=== PATIENT | male | born 1970 | race Caucasian/White ===

== ENCOUNTER 2018-05-29 21:59 | Inpatient (IN) | payer MEDICARE, MEDICAID ==
[~2018-05-29] VITALS: Ht 180.3 cm; Wt 121.6 kg
[~2018-05-29 21:59] MED LIST: CITA-106 PO; DIVA-78 PO; QUET400T PO
[2018-05-29 23:35] LABS: BASOPHILS % (AUTO) 1.4 % (0.0-2.0); EOSINOPHILS % (AUTO) 1.4 % (1.0-6.0); HEMATOCRIT 43.6 % (41-53); HEMOGLOBIN 14.9 g/dL (13.5-17.5); LYMPHOCYTES % (AUTO) 26.6 % (22.0-44.0); MEAN CORPUSCULAR HEMOGLOBIN 29.6 pg (26.0-34.0); MEAN CORPUSCULAR HGB CONC 34.2 G/dL (31.0-37.0); MEAN CORPUSCULAR VOLUME 87 fL (80-100); MONOCYTES # (AUTO) 0.7 K/uL (0.1-1.0); MONOCYTES % (AUTO) 6.6 % (2.0-9.0); NEUTROPHILS # (AUTO) 7.3 K/uL (1.8-7.7); PLATELET COUNT (AUTO) 338 K/uL (150-450); RED BLOOD CELL COUNT(AUTO) 5.03 MIL/uL (4.50-5.90); RED CELL DISTRIBUTION WIDTH 13.9 % (11.5-14.5)
[2018-05-29 23:48] LABS: ANION GAP 10 mmol/L (8-16); CALCIUM, TOTAL 9.1 mg/dL (8.8-10.5); CARBON DIOXIDE 24 mmol/L (22-29); CHLORIDE 100 mmol/L (98-107); CREATININE 1.02 mg/dL (0.60-1.30); GLOMERULAR FILTR. RATE CALC > 60 mL/min (>60); GLUCOSE,RANDOM 145 mg/dL (70-110); SODIUM SERUM 134 mmol/L (136-145); UREA NITROGEN, BLOOD 23 mg/dL (7-18)
[2018-05-29 23:55] LABS: ALANINE AMINOTRANSFERASE 49 U/L (12-78); ALKALINE PHOSPHATASE 79 U/L (46-116); ASPARTATE AMINOTRANSFERASE 18 U/L (15-37); BILIRUBIN,TOTAL 0.3 mg/dL (0.1-1.0); TOTAL PROTEIN, SERUM 7.6 g/dL (6.4-8.2)
[2018-05-30 00:07] LABS: VALPROIC ACID < 3 mcg/mL (50-100)
[2018-05-30 05:34] LABS: AMPHET/METH SCREEN,URINE NEGATIVE (NEGATIVE); BARBITURATE SCREEN, URINE NEGATIVE (NEGATIVE); BENZODIAZEPINES SCREEN,URINE NEGATIVE (NEGATIVE); CANNABINOID SCREEN,URINE NEGATIVE (NEGATIVE); COCAINE SCREEN,URINE NEGATIVE (NEGATIVE); METHADONE SCREEN, URINE NEGATIVE (NEGATIVE); OPIATE SCREEN,URINE NEGATIVE (NEGATIVE)
[2018-05-30 05:38] LABS: PHENCYCLIDINE SCREEN,URINE NEGATIVE (NEGATIVE)
[2018-05-30 06:05] VITALS: BP 111/78
[2018-05-30] MEDS ORDERED: DOCUSATE SODIUM 100 MG CAPSULE PO PRN (06:45)
[2018-05-30] MEDS ORDERED: MAG HYDROX/AL HYDROX/SIMETH ES 30 ML SUSPENSION UDCUP PO PRN (06:45)
[2018-05-30] MEDS ORDERED: PETROLATUM,WHITE 71 GM JELLY TP PRN (06:45)
[2018-05-30] MEDS ORDERED: CloNIDine HCL 0.1 MG TABLET PO PRN (06:45)
[2018-05-30] MEDS ORDERED: ACETAMINOPHEN 325 MG TABLET PO PRN (06:45)
[2018-05-30] MEDS ORDERED: IBUPROFEN 400 MG TABLET PO PRN (06:45)
[2018-05-30] MEDS ORDERED: LOPERAMIDE HCL 2 MG CAPSULE PO PRN (06:45)
[2018-05-30] MEDS ORDERED: ONDANSETRON HCL 4 MG TABLET PO PRN (06:45)
[2018-05-30] MEDS ORDERED: NICOTINE 14 MG/24 HOUR PATCH TD PRN (06:45)
[2018-05-30] MEDS ORDERED: PNEUMOCOCCAL VACCINE POLYVALENT 0.5 ML VIAL [PPSV23] IM ONE (06:45)
[2018-05-30] MEDS ORDERED: MAGNESIUM HYDROXIDE SUSPENSION 30 ML UDCUP PO PRN (06:45)
[2018-05-30] MEDS ORDERED: ALBUTEROL SULFATE HFA 90 MCG/PUFF 8 GM INHALER IH PRN (06:45)
[2018-05-30] MEDS ORDERED: GuaiFENesin/D-METHORPHAN [SUGAR-FREE] 200-20MG/10 ML SYRUP UDCUP PO PRN (06:45)
[2018-05-30 08:59] VITALS: BP 138/63
[2018-05-30] MEDS: DIVALPROEX SODIUM 500 MG ER TABLET PO SCH (13:32)
[2018-05-30] MEDS: QUEtiapine FUMARATE 100 MG TABLET PO SCH (13:32)
[2018-05-30] MEDS: LORazepam 2 MG TABLET PO PRN (14:48)
[2018-05-30] MEDS: HALOPERIDOL 5 MG TABLET PO PRN (14:48)
[2018-05-30 16:00] VITALS: BP 136/87
[2018-05-30] MEDS: QUEtiapine FUMARATE 200 MG TABLET PO SCH (20:37)
[2018-05-31 08:29] VITALS: BP 112/73
[2018-05-31] MEDS: QUEtiapine FUMARATE 100 MG TABLET PO SCH (09:41)
[2018-05-31] MEDS: DIVALPROEX SODIUM 500 MG ER TABLET PO SCH (09:42)
[2018-05-31] MEDS: LORazepam 2 MG TABLET PO PRN ×2 (17:03→21:07)
[2018-05-31 17:49] VITALS: BP 134/92
[2018-05-31] MEDS: ZOLPIDEM TARTRATE 10 MG TABLET PO PRN (21:07)
[2018-05-31] MEDS: QUEtiapine FUMARATE 200 MG TABLET PO SCH (21:07)
[2018-06-01 08:11] VITALS: BP 134/75
[2018-06-01] MEDS: LORazepam 2 MG TABLET PO PRN ×2 (09:59→16:50)
[2018-06-01] MEDS: QUEtiapine FUMARATE 100 MG TABLET PO SCH (09:59)
[2018-06-01] MEDS: DIVALPROEX SODIUM 500 MG ER TABLET PO SCH (09:59)
[2018-06-01] MEDS: HALOPERIDOL 5 MG TABLET PO PRN ×2 (09:59→16:50)
[2018-06-01 16:00] VITALS: BP 125/86
[2018-06-01] MEDS: QUEtiapine FUMARATE 200 MG TABLET PO SCH (20:37)
[2018-06-02 06:15] VITALS: BP 130/74
[2018-06-02 08:08] LABS: BASOPHILS % (AUTO) 0.8 % (0.0-2.0); EOSINOPHILS % (AUTO) 1.7 % (1.0-6.0); HEMATOCRIT 44.4 % (41-53); LYMPHOCYTES # (AUTO) 2.4 K/uL (1.0-4.8); LYMPHOCYTES % (AUTO) 31.9 % (22.0-44.0); MEAN CORPUSCULAR HEMOGLOBIN 29.6 pg (26.0-34.0); MEAN CORPUSCULAR HGB CONC 33.8 G/dL (31.0-37.0); MEAN CORPUSCULAR VOLUME 88 fL (80-100); MONOCYTES # (AUTO) 0.4 K/uL (0.1-1.0); MONOCYTES % (AUTO) 5.6 % (2.0-9.0); NEUTROPHILS # (AUTO) 4.5 K/uL (1.8-7.7); PLATELET COUNT (AUTO) 330 K/uL (150-450); RED BLOOD CELL COUNT(AUTO) 5.07 MIL/uL (4.50-5.90); RED CELL DISTRIBUTION WIDTH 13.3 % (11.5-14.5)
[2018-06-02 08:13] VITALS: BP 134/64
[2018-06-02 08:38] LABS: ANION GAP 7 mmol/L (8-16); CALCIUM, TOTAL 9.2 mg/dL (8.8-10.5); CARBON DIOXIDE 29 mmol/L (22-29); CHLORIDE 102 mmol/L (98-107); CREATININE 0.84 mg/dL (0.60-1.30); GLOMERULAR FILTR. RATE CALC > 60 mL/min (>60); GLUCOSE,RANDOM 175 mg/dL (70-110); POTASSIUM 4.2 mmol/L (3.5-5.1); SODIUM SERUM 138 mmol/L (136-145); UREA NITROGEN, BLOOD 12 mg/dL (7-18)
[2018-06-02] MEDS: HALOPERIDOL 5 MG TABLET PO PRN ×2 (08:46→16:35)
[2018-06-02] MEDS: QUEtiapine FUMARATE 100 MG TABLET PO SCH (08:46)
[2018-06-02] MEDS: LORazepam 2 MG TABLET PO PRN ×2 (08:46→16:35)
[2018-06-02] MEDS: DIVALPROEX SODIUM 500 MG ER TABLET PO SCH (08:46)
[2018-06-02 16:11] VITALS: BP 128/86
[2018-06-02] MEDS ORDERED: TUBERCULIN, PURIFIED PROTEIN DERIVATIVE 5 TU/0.1 ML SYG ID ONE (16:15)
[2018-06-02] MEDS: QUEtiapine FUMARATE 200 MG TABLET PO SCH (20:53)
[2018-06-02] MEDS: ZOLPIDEM TARTRATE 10 MG TABLET PO PRN (20:53)
[2018-06-03 05:40] VITALS: BP 121/87
[2018-06-03 08:34] VITALS: BP 111/81
[2018-06-03] MEDS: LORazepam 2 MG TABLET PO PRN (09:07)
[2018-06-03] MEDS: QUEtiapine FUMARATE 100 MG TABLET PO SCH (09:08)
[2018-06-03] MEDS: DIVALPROEX SODIUM 500 MG ER TABLET PO SCH (09:08)
[2018-06-03] MEDS: HALOPERIDOL 5 MG TABLET PO PRN (09:08)
[2018-06-03 16:16] VITALS: BP 126/80
[2018-06-03] MEDS: QUEtiapine FUMARATE 200 MG TABLET PO SCH (20:09)
[2018-06-03] MEDS: ZOLPIDEM TARTRATE 10 MG TABLET PO PRN (20:09)
[2018-06-04 05:55] VITALS: BP 118/79
[2018-06-04 08:23] VITALS: BP 125/81
[2018-06-04] MEDS: DIVALPROEX SODIUM 500 MG ER TABLET PO SCH (08:24)
[2018-06-04] MEDS: LORazepam 2 MG TABLET PO PRN ×2 (08:25→17:03)
[2018-06-04] MEDS: HALOPERIDOL 5 MG TABLET PO PRN ×2 (08:25→17:03)
[2018-06-04] MEDS: QUEtiapine FUMARATE 100 MG TABLET PO SCH ×2 (08:25→17:03)
[2018-06-04 16:22] VITALS: BP 136/84
[2018-06-04] MEDS: QUEtiapine FUMARATE 300 MG TABLET PO SCH (20:38)
[2018-06-04] MEDS: ZOLPIDEM TARTRATE 10 MG TABLET PO PRN (20:39)
[2018-06-05 06:18] VITALS: BP 118/78
[2018-06-05 08:10] VITALS: BP 138/78
[2018-06-05] MEDS: DIVALPROEX SODIUM 500 MG ER TABLET PO SCH (08:55)
[2018-06-05] MEDS: QUEtiapine FUMARATE 100 MG TABLET PO SCH ×2 (08:55→17:12)
[2018-06-05 16:10] VITALS: BP 127/75
[2018-06-05] MEDS: LORazepam 2 MG TABLET PO PRN (17:11)
[2018-06-05] MEDS: ZOLPIDEM TARTRATE 10 MG TABLET PO PRN (20:32)
[2018-06-05] MEDS: QUEtiapine FUMARATE 300 MG TABLET PO SCH (20:32)
[2018-06-06 01:35] VITALS: BP 129/80
[2018-06-06 08:21] VITALS: BP 139/84
[2018-06-06] MEDS: DIVALPROEX SODIUM 500 MG ER TABLET PO SCH (09:27)
[2018-06-06] MEDS: HALOPERIDOL 5 MG TABLET PO PRN ×2 (09:28→16:47)
[2018-06-06] MEDS: LORazepam 2 MG TABLET PO PRN ×2 (09:28→16:47)
[2018-06-06] MEDS: QUEtiapine FUMARATE 100 MG TABLET PO SCH ×2 (09:28→16:47)
[2018-06-06 16:30] VITALS: BP 135/60
[2018-06-06] MEDS: ZOLPIDEM TARTRATE 10 MG TABLET PO PRN (20:28)
[2018-06-06] MEDS: QUEtiapine FUMARATE 300 MG TABLET PO SCH (20:28)
[2018-06-07 04:51] VITALS: BP 128/64
[2018-06-07 08:13] VITALS: BP 126/67
[2018-06-07] MEDS: DIVALPROEX SODIUM 500 MG ER TABLET PO SCH (09:27)
[2018-06-07] MEDS: QUEtiapine FUMARATE 100 MG TABLET PO SCH ×2 (09:27→17:33)
[2018-06-07] MEDS: HALOPERIDOL 5 MG TABLET PO PRN ×2 (09:27→17:33)
[2018-06-07] MEDS: LORazepam 2 MG TABLET PO PRN ×2 (09:27→17:33)
[2018-06-07 16:13] VITALS: BP 139/95
[2018-06-07] MEDS: QUEtiapine FUMARATE 300 MG TABLET PO SCH (20:57)
[2018-06-07] MEDS: ZOLPIDEM TARTRATE 10 MG TABLET PO PRN (20:57)
[2018-06-08 06:31] VITALS: BP 132/83
[2018-06-08 08:18] VITALS: BP 130/80
[2018-06-08] MEDS: LORazepam 2 MG TABLET PO PRN ×2 (09:15→16:18)
[2018-06-08] MEDS: HALOPERIDOL 5 MG TABLET PO PRN ×2 (09:15→16:18)
[2018-06-08] MEDS: DIVALPROEX SODIUM 500 MG ER TABLET PO SCH (09:15)
[2018-06-08] MEDS: QUEtiapine FUMARATE 100 MG TABLET PO SCH ×2 (09:15→16:18)
[2018-06-08] MEDS ORDERED: PALIPERIDONE PALMITATE 234 MG/1.5 ML SYRINGE IM ONE (15:45)
[2018-06-08 16:32] VITALS: BP 134/83
[2018-06-08] MEDS: QUEtiapine FUMARATE 300 MG TABLET PO SCH (20:41)
[2018-06-08] MEDS: ZOLPIDEM TARTRATE 10 MG TABLET PO PRN (20:41)
[2018-06-09 04:57] VITALS: BP 113/77
[2018-06-09 08:12] VITALS: BP 118/70
[2018-06-09] MEDS: LORazepam 2 MG TABLET PO PRN ×2 (08:33→16:33)
[2018-06-09] MEDS: QUEtiapine FUMARATE 100 MG TABLET PO SCH ×2 (08:33→16:33)
[2018-06-09] MEDS: HALOPERIDOL 5 MG TABLET PO PRN ×2 (08:33→16:33)
[2018-06-09] MEDS: DIVALPROEX SODIUM 500 MG ER TABLET PO SCH (08:33)
[2018-06-09 16:07] VITALS: BP 139/72
[2018-06-09] MEDS: ZOLPIDEM TARTRATE 10 MG TABLET PO PRN (20:11)
[2018-06-09] MEDS: QUEtiapine FUMARATE 300 MG TABLET PO SCH (20:11)
[2018-06-10 06:46] VITALS: BP 130/67
[2018-06-10] MEDS: DIVALPROEX SODIUM 500 MG ER TABLET PO SCH (08:31)
[2018-06-10] MEDS: QUEtiapine FUMARATE 100 MG TABLET PO SCH ×2 (08:31→16:21)
[2018-06-10 12:49] VITALS: BP 132/74
[2018-06-10 16:00] VITALS: BP 121/71
[2018-06-10] MEDS: HALOPERIDOL 5 MG TABLET PO PRN (16:20)
[2018-06-10] MEDS: LORazepam 2 MG TABLET PO PRN (16:21)
[2018-06-10] MEDS: QUEtiapine FUMARATE 300 MG TABLET PO SCH (20:10)
[2018-06-10] MEDS: ZOLPIDEM TARTRATE 10 MG TABLET PO PRN (20:10)
[2018-06-11 06:41] VITALS: BP 128/68
[2018-06-11 08:16] VITALS: BP 112/62
[2018-06-11] MEDS: DIVALPROEX SODIUM 500 MG ER TABLET PO SCH (08:57)
[2018-06-11] MEDS: QUEtiapine FUMARATE 100 MG TABLET PO SCH ×2 (08:57→16:46)
[2018-06-11] MEDS: LORazepam 2 MG TABLET PO PRN ×2 (09:55→16:47)
[2018-06-11] MEDS ORDERED: PALIPERIDONE PALMITATE 156 MG/ML SYRINGE IM ONE (15:45)
[2018-06-11 16:00] VITALS: BP 133/82
[2018-06-11] MEDS: HALOPERIDOL 5 MG TABLET PO PRN (16:47)
[2018-06-11] MEDS: ZOLPIDEM TARTRATE 10 MG TABLET PO PRN (20:10)
[2018-06-11] MEDS: QUEtiapine FUMARATE 300 MG TABLET PO SCH (20:10)
[2018-06-12 06:35] VITALS: BP 132/78
[2018-06-12 08:11] VITALS: BP 136/87
[2018-06-12] MEDS: DIVALPROEX SODIUM 500 MG ER TABLET PO SCH (08:45)
[2018-06-12] MEDS: QUEtiapine FUMARATE 100 MG TABLET PO SCH ×2 (08:45→16:51)
[2018-06-12 16:00] VITALS: BP 130/82
[2018-06-12] MEDS: HALOPERIDOL 5 MG TABLET PO PRN (16:51)
[2018-06-12] MEDS: LORazepam 2 MG TABLET PO PRN (16:51)
[2018-06-12] MEDS: QUEtiapine FUMARATE 300 MG TABLET PO SCH (20:53)
[2018-06-12] MEDS: ZOLPIDEM TARTRATE 10 MG TABLET PO PRN (20:53)
[2018-06-13 04:03] VITALS: BP 112/72
[2018-06-13 08:09] VITALS: BP 127/79
[2018-06-13] MEDS: QUEtiapine FUMARATE 100 MG TABLET PO SCH ×2 (08:43→16:16)
[2018-06-13] MEDS: DIVALPROEX SODIUM 500 MG ER TABLET PO SCH (08:43)
[2018-06-13] MEDS: HALOPERIDOL 5 MG TABLET PO PRN (10:11)
[2018-06-13 16:00] VITALS: BP 134/86
[2018-06-13] MEDS: LORazepam 2 MG TABLET PO PRN (16:16)
[2018-06-13] MEDS: QUEtiapine FUMARATE 300 MG TABLET PO SCH (20:28)
[2018-06-14 06:41] VITALS: BP 111/72
[2018-06-14 08:11] VITALS: BP 128/76
[2018-06-14] MEDS: DIVALPROEX SODIUM 500 MG ER TABLET PO SCH (08:58)
[2018-06-14] MEDS: QUEtiapine FUMARATE 100 MG TABLET PO SCH ×2 (08:59→17:11)
[2018-06-14] MEDS: HALOPERIDOL 5 MG TABLET PO PRN (17:11)
[2018-06-14] MEDS: LORazepam 2 MG TABLET PO PRN (17:11)
[2018-06-14] MEDS: QUEtiapine FUMARATE 300 MG TABLET PO SCH (21:01)
[2018-06-14] MEDS: ZOLPIDEM TARTRATE 10 MG TABLET PO PRN (21:01)
[2018-06-15 05:45] VITALS: BP 123/81
[2018-06-15 08:08] VITALS: BP 114/68
[2018-06-15] MEDS: DIVALPROEX SODIUM 500 MG ER TABLET PO SCH (08:37)
[2018-06-15] MEDS: QUEtiapine FUMARATE 100 MG TABLET PO SCH ×2 (08:37→17:30)
[2018-06-15 16:00] VITALS: BP 134/80
[2018-06-15] MEDS: QUEtiapine FUMARATE 300 MG TABLET PO SCH (20:38)
[2018-06-16 05:10] VITALS: BP 111/79
[2018-06-16 08:12] VITALS: BP 118/72
[2018-06-16] MEDS: QUEtiapine FUMARATE 100 MG TABLET PO SCH ×2 (08:56→16:44)
[2018-06-16] MEDS: DIVALPROEX SODIUM 500 MG ER TABLET PO SCH (08:56)
[2018-06-16 16:00] VITALS: BP 127/78
[2018-06-16] MEDS: LORazepam 2 MG TABLET PO PRN (16:44)
[2018-06-16] MEDS: HALOPERIDOL 5 MG TABLET PO PRN (16:44)
[2018-06-16] MEDS: QUEtiapine FUMARATE 300 MG TABLET PO SCH (21:00)
[2018-06-16] MEDS: ZOLPIDEM TARTRATE 10 MG TABLET PO PRN (21:00)
[2018-06-17 07:08] VITALS: BP 127/82
[2018-06-17 08:09] VITALS: BP 129/78
[2018-06-17] MEDS: QUEtiapine FUMARATE 100 MG TABLET PO SCH ×2 (09:00→17:28)
[2018-06-17] MEDS: DIVALPROEX SODIUM 500 MG ER TABLET PO SCH (09:00)
[2018-06-17 09:27] LABS: ALANINE AMINOTRANSFERASE 69 U/L (12-78); ALBUMIN 3.7 g/dL (3.4-5.0); ALKALINE PHOSPHATASE 74 U/L (46-116); ANION GAP 10 mmol/L (8-16); ASPARTATE AMINOTRANSFERASE 24 U/L (15-37); BILIRUBIN,TOTAL 0.4 mg/dL (0.1-1.0); CALCIUM, TOTAL 9.2 mg/dL (8.8-10.5); CARBON DIOXIDE 28 mmol/L (22-29); CHLORIDE 102 mmol/L (98-107); CREATININE 0.91 mg/dL (0.60-1.30); GLOMERULAR FILTR. RATE CALC > 60 mL/min (>60); GLUCOSE,RANDOM 206 mg/dL (70-110); POTASSIUM 4.6 mmol/L (3.5-5.1); SODIUM SERUM 140 mmol/L (136-145); UREA NITROGEN, BLOOD 16 mg/dL (7-18)
[2018-06-17 16:00] VITALS: BP 133/71
[2018-06-17] MEDS: LORazepam 2 MG TABLET PO PRN (17:28)
[2018-06-17] MEDS: QUEtiapine FUMARATE 300 MG TABLET PO SCH (21:21)
[2018-06-17] MEDS: ZOLPIDEM TARTRATE 10 MG TABLET PO PRN (21:21)
[2018-06-18] MEDS: MetFORMIN HCL 500 MG TABLET PO SCH (07:08)
[2018-06-18 08:12] VITALS: BP 128/74
[2018-06-18] MEDS: DIVALPROEX SODIUM 500 MG ER TABLET PO SCH (08:34)
[2018-06-18] MEDS: QUEtiapine FUMARATE 100 MG TABLET PO SCH ×2 (08:34→17:05)
[2018-06-18] MEDS: LORazepam 2 MG TABLET PO PRN ×3 (09:02→21:50)
[2018-06-18 16:37] VITALS: BP 116/67
[2018-06-18] MEDS: QUEtiapine FUMARATE 300 MG TABLET PO SCH (20:38)
[2018-06-18] MEDS: ZOLPIDEM TARTRATE 10 MG TABLET PO PRN (20:38)
[2018-06-18 21:45] VITALS: BP 131/89
[2018-06-18] MEDS: HALOPERIDOL 5 MG TABLET PO PRN (21:50)
[2018-06-19 06:32] VITALS: BP 128/79
[2018-06-19] MEDS: MetFORMIN HCL 500 MG TABLET PO SCH (06:47)
[2018-06-19 08:02] LABS: ANION GAP 2 mmol/L (8-16); CARBON DIOXIDE 34 mmol/L (22-29); CHLORIDE 104 mmol/L (98-107); CREATININE 0.83 mg/dL (0.60-1.30); GLOMERULAR FILTR. RATE CALC > 60 mL/min (>60); GLUCOSE,RANDOM 117 mg/dL (70-110); POTASSIUM 4.5 mmol/L (3.5-5.1); SODIUM SERUM 140 mmol/L (136-145); UREA NITROGEN, BLOOD 14 mg/dL (7-18)
[2018-06-19] MEDS: QUEtiapine FUMARATE 100 MG TABLET PO SCH ×2 (08:07→16:37)
[2018-06-19] MEDS: DIVALPROEX SODIUM 500 MG ER TABLET PO SCH (08:07)
[2018-06-19] MEDS: HALOPERIDOL 5 MG TABLET PO PRN ×2 (08:07→12:10)
[2018-06-19] MEDS: LORazepam 2 MG TABLET PO PRN ×3 (08:07→16:37)
[2018-06-19 08:58] VITALS: BP 140/89
[2018-06-19 16:36] VITALS: BP 126/87
[2018-06-19] MEDS: ZOLPIDEM TARTRATE 10 MG TABLET PO PRN (20:35)
[2018-06-19] MEDS: QUEtiapine FUMARATE 300 MG TABLET PO SCH (20:35)
[2018-06-20] MEDS: HALOPERIDOL 5 MG TABLET PO PRN ×2 (00:43→16:23)
[2018-06-20] MEDS: LORazepam 2 MG TABLET PO PRN ×3 (00:43→16:23)
[2018-06-20 00:45] VITALS: BP 135/88
[2018-06-20] MEDS: MetFORMIN HCL 500 MG TABLET PO SCH (06:17)
[2018-06-20] MEDS: DIVALPROEX SODIUM 500 MG ER TABLET PO SCH (08:30)
[2018-06-20] MEDS: QUEtiapine FUMARATE 100 MG TABLET PO SCH ×2 (08:30→16:23)
[2018-06-20 09:40] VITALS: BP 100/68
[2018-06-20 16:12] VITALS: BP 124/82
[2018-06-20] MEDS: ZOLPIDEM TARTRATE 10 MG TABLET PO PRN (20:51)
[2018-06-20] MEDS: QUEtiapine FUMARATE 300 MG TABLET PO SCH (20:51)
[2018-06-21] MEDS: MetFORMIN HCL 500 MG TABLET PO SCH (06:17)
[2018-06-21 06:39] VITALS: BP 130/79
[2018-06-21 08:09] VITALS: BP 132/78
[2018-06-21] MEDS: DIVALPROEX SODIUM 500 MG ER TABLET PO SCH (08:42)
[2018-06-21] MEDS: QUEtiapine FUMARATE 100 MG TABLET PO SCH ×2 (08:42→16:37)
[2018-06-21 16:12] VITALS: BP 130/72
[2018-06-21] MEDS: LORazepam 2 MG TABLET PO PRN (16:37)
[2018-06-21] MEDS: ZOLPIDEM TARTRATE 10 MG TABLET PO PRN (21:00)
[2018-06-21] MEDS: QUEtiapine FUMARATE 300 MG TABLET PO SCH (21:00)
[2018-06-22 03:15] VITALS: BP 149/89
[2018-06-22] MEDS: MetFORMIN HCL 500 MG TABLET PO SCH (06:34)
[2018-06-22] MEDS: DIVALPROEX SODIUM 500 MG ER TABLET PO SCH (09:02)
[2018-06-22] MEDS: QUEtiapine FUMARATE 100 MG TABLET PO SCH ×2 (09:02→17:14)
[2018-06-22 09:31] VITALS: BP 110/69
[2018-06-22 16:00] VITALS: BP 118/76
[2018-06-22] MEDS: LORazepam 2 MG TABLET PO PRN (17:14)
[2018-06-22] MEDS: QUEtiapine FUMARATE 300 MG TABLET PO SCH (20:53)
[2018-06-22] MEDS: ZOLPIDEM TARTRATE 10 MG TABLET PO PRN (20:54)
[2018-06-23] MEDS: MetFORMIN HCL 500 MG TABLET PO SCH (06:10)
[2018-06-23 06:40] VITALS: BP 100/66
[2018-06-23 08:13] VITALS: BP 116/65
[2018-06-23] MEDS: HALOPERIDOL 5 MG TABLET PO PRN (08:43)
[2018-06-23] MEDS: DIVALPROEX SODIUM 500 MG ER TABLET PO SCH (08:43)
[2018-06-23] MEDS: QUEtiapine FUMARATE 100 MG TABLET PO SCH ×2 (08:43→17:11)
[2018-06-23] MEDS: LORazepam 2 MG TABLET PO PRN (08:43)
[2018-06-23 16:00] VITALS: BP 134/84
[2018-06-23] MEDS: QUEtiapine FUMARATE 300 MG TABLET PO SCH (21:19)
[2018-06-24] MEDS: MetFORMIN HCL 500 MG TABLET PO SCH (06:46)
[2018-06-24 07:03] VITALS: BP 124/78
[2018-06-24 08:13] VITALS: BP 126/72
[2018-06-24] MEDS: QUEtiapine FUMARATE 100 MG TABLET PO SCH ×2 (09:49→16:30)
[2018-06-24] MEDS: DIVALPROEX SODIUM 500 MG ER TABLET PO SCH (09:49)
[2018-06-24] MEDS: HALOPERIDOL 5 MG TABLET PO PRN (09:49)
[2018-06-24 17:07] VITALS: BP 129/75
[2018-06-24] MEDS: QUEtiapine FUMARATE 300 MG TABLET PO SCH (20:49)
[2018-06-25] MEDS: MetFORMIN HCL 500 MG TABLET PO SCH (06:50)
[2018-06-25 07:31] VITALS: BP 128/83
[2018-06-25 08:23] VITALS: BP 114/72
[2018-06-25] MEDS: DIVALPROEX SODIUM 500 MG ER TABLET PO SCH (08:53)
[2018-06-25] MEDS: QUEtiapine FUMARATE 100 MG TABLET PO SCH ×2 (08:53→17:02)
[2018-06-25] MEDS: HALOPERIDOL 5 MG TABLET PO PRN ×2 (08:54→17:02)
[2018-06-25 16:09] VITALS: BP 119/71
[2018-06-25] MEDS: LORazepam 2 MG TABLET PO PRN (18:01)
[2018-06-25] MEDS: QUEtiapine FUMARATE 300 MG TABLET PO SCH (21:13)
[2018-06-25] MEDS: ZOLPIDEM TARTRATE 10 MG TABLET PO PRN (21:14)
[2018-06-26] MEDS: MetFORMIN HCL 500 MG TABLET PO SCH (06:36)
[2018-06-26 08:00] VITALS: BP 118/71
[2018-06-26] MEDS: QUEtiapine FUMARATE 100 MG TABLET PO SCH ×2 (08:32→17:10)
[2018-06-26] MEDS: DIVALPROEX SODIUM 500 MG ER TABLET PO SCH (08:32)
[2018-06-26] MEDS: HALOPERIDOL 5 MG TABLET PO PRN ×2 (08:33→19:07)
[2018-06-26] MEDS: LORazepam 2 MG TABLET PO PRN ×2 (08:33→17:10)
[2018-06-26 16:21] VITALS: BP 122/89
[2018-06-26] MEDS: QUEtiapine FUMARATE 300 MG TABLET PO SCH (21:04)
[2018-06-27 06:17] VITALS: BP 139/75
[2018-06-27] MEDS: MetFORMIN HCL 500 MG TABLET PO SCH (06:21)
[2018-06-27 08:35] VITALS: BP 134/87
[2018-06-27] MEDS: DIVALPROEX SODIUM 500 MG ER TABLET PO SCH (09:00)
[2018-06-27] MEDS: QUEtiapine FUMARATE 100 MG TABLET PO SCH ×2 (09:00→16:02)
[2018-06-27] MEDS: LORazepam 2 MG TABLET PO PRN (16:02)
[2018-06-27 16:39] VITALS: BP 137/85
[2018-06-27] MEDS: ZOLPIDEM TARTRATE 10 MG TABLET PO PRN (20:55)
[2018-06-27] MEDS: QUEtiapine FUMARATE 300 MG TABLET PO SCH (20:55)
[2018-06-28] MEDS: MetFORMIN HCL 500 MG TABLET PO SCH (06:08)
[2018-06-28 08:00] VITALS: BP 118/69
[2018-06-28] MEDS: QUEtiapine FUMARATE 100 MG TABLET PO SCH ×2 (09:08→16:08)
[2018-06-28] MEDS: LORazepam 2 MG TABLET PO PRN (09:08)
[2018-06-28] MEDS: DIVALPROEX SODIUM 500 MG ER TABLET PO SCH (09:08)
[2018-06-28 16:30] VITALS: BP 115/79
[2018-06-28] MEDS: QUEtiapine FUMARATE 300 MG TABLET PO SCH (21:13)
[2018-06-28] MEDS: ZOLPIDEM TARTRATE 10 MG TABLET PO PRN (21:13)
[2018-06-29 00:13] VITALS: BP 142/93
[2018-06-29] MEDS: MetFORMIN HCL 500 MG TABLET PO SCH (06:35)
[2018-06-29 08:33] VITALS: BP 135/82
[2018-06-29] MEDS: QUEtiapine FUMARATE 100 MG TABLET PO SCH ×2 (08:52→17:19)
[2018-06-29] MEDS: DIVALPROEX SODIUM 500 MG ER TABLET PO SCH (08:52)
[2018-06-29 16:00] VITALS: BP 122/83
[2018-06-29] MEDS: LORazepam 2 MG TABLET PO PRN (17:19)
[2018-06-29] MEDS: HALOPERIDOL 5 MG TABLET PO PRN (17:19)
[2018-06-29] MEDS: QUEtiapine FUMARATE 300 MG TABLET PO SCH (21:10)
[2018-06-29] MEDS: ZOLPIDEM TARTRATE 10 MG TABLET PO PRN (21:10)
[2018-06-30 00:09] VITALS: BP 125/80
[2018-06-30] MEDS: MetFORMIN HCL 500 MG TABLET PO SCH (06:36)
[2018-06-30 08:12] VITALS: BP 122/58
[2018-06-30] MEDS: DIVALPROEX SODIUM 500 MG ER TABLET PO SCH (10:07)
[2018-06-30] MEDS: QUEtiapine FUMARATE 100 MG TABLET PO SCH ×2 (10:07→16:49)
[2018-06-30 16:00] VITALS: BP 118/87
[2018-06-30] MEDS: HALOPERIDOL 5 MG TABLET PO PRN (16:49)
[2018-06-30] MEDS: LORazepam 2 MG TABLET PO PRN (16:49)
[2018-06-30] MEDS: QUEtiapine FUMARATE 300 MG TABLET PO SCH (20:24)
[2018-06-30] MEDS: ZOLPIDEM TARTRATE 10 MG TABLET PO PRN (20:24)
[2018-07-01 03:49] VITALS: BP 124/85
[2018-07-01] MEDS: MetFORMIN HCL 500 MG TABLET PO SCH (06:47)
[2018-07-01 08:21] VITALS: BP 118/72
[2018-07-01] MEDS: DIVALPROEX SODIUM 500 MG ER TABLET PO SCH (08:58)
[2018-07-01] MEDS: QUEtiapine FUMARATE 100 MG TABLET PO SCH ×2 (08:58→17:15)
[2018-07-01 11:02] VITALS: BP 121/68
[2018-07-01 16:00] VITALS: BP 112/73
[2018-07-01] MEDS: QUEtiapine FUMARATE 300 MG TABLET PO SCH (20:53)
[2018-07-02] MEDS: MetFORMIN HCL 500 MG TABLET PO SCH (06:57)
[2018-07-02 08:00] VITALS: BP 103/79
[2018-07-02] MEDS: DIVALPROEX SODIUM 500 MG ER TABLET PO SCH (08:43)
[2018-07-02] MEDS: QUEtiapine FUMARATE 100 MG TABLET PO SCH ×2 (08:44→16:52)
[2018-07-02 16:00] VITALS: BP 116/61
[2018-07-02] MEDS: QUEtiapine FUMARATE 300 MG TABLET PO SCH (21:13)
[2018-07-03] MEDS: MetFORMIN HCL 500 MG TABLET PO SCH (07:04)
[2018-07-03 08:50] VITALS: BP 116/80
[2018-07-03] MEDS: DIVALPROEX SODIUM 500 MG ER TABLET PO SCH (08:59)
[2018-07-03] MEDS: QUEtiapine FUMARATE 100 MG TABLET PO SCH ×2 (08:59→17:40)
[2018-07-03] MEDS: LORazepam 2 MG TABLET PO PRN (11:26)
[2018-07-03] MEDS: HALOPERIDOL 5 MG TABLET PO PRN (11:27)
[2018-07-03 17:45] VITALS: BP 137/64
[2018-07-03] MEDS: QUEtiapine FUMARATE 300 MG TABLET PO SCH (20:30)
[2018-07-04] MEDS: MetFORMIN HCL 500 MG TABLET PO SCH (07:34)
[2018-07-04 08:51] VITALS: BP 107/65
[2018-07-04] MEDS: DIVALPROEX SODIUM 500 MG ER TABLET PO SCH (08:52)
[2018-07-04] MEDS: QUEtiapine FUMARATE 100 MG TABLET PO SCH ×2 (08:52→16:42)
[2018-07-04 17:19] VITALS: BP 122/84
[2018-07-04] MEDS: QUEtiapine FUMARATE 300 MG TABLET PO SCH (20:48)
[2018-07-05] MEDS: MetFORMIN HCL 500 MG TABLET PO SCH (07:05)
[2018-07-05] MEDS: QUEtiapine FUMARATE 100 MG TABLET PO SCH ×2 (08:54→16:14)
[2018-07-05] MEDS: DIVALPROEX SODIUM 500 MG ER TABLET PO SCH (08:54)
[2018-07-05 09:34] VITALS: BP 135/93
[2018-07-05] MEDS: LORazepam 2 MG TABLET PO PRN (16:14)
[2018-07-05 16:25] VITALS: BP 129/85
[2018-07-05] MEDS: HALOPERIDOL 5 MG TABLET PO PRN (17:55)
[2018-07-05] MEDS: ZOLPIDEM TARTRATE 10 MG TABLET PO PRN (21:03)
[2018-07-05] MEDS: QUEtiapine FUMARATE 300 MG TABLET PO SCH (21:03)
[2018-07-06] MEDS: MetFORMIN HCL 500 MG TABLET PO SCH (07:05)
[2018-07-06 08:00] VITALS: BP 111/80
[2018-07-06] MEDS: PALIPERIDONE PALMITATE 234 MG/1.5 ML SYRINGE IM SCH (10:22)
[2018-07-06] MEDS: QUEtiapine FUMARATE 100 MG TABLET PO SCH ×2 (10:24→16:00)
[2018-07-06] MEDS: DIVALPROEX SODIUM 500 MG ER TABLET PO SCH (10:24)
[2018-07-06 17:07] VITALS: BP 122/86
[2018-07-06] MEDS: QUEtiapine FUMARATE 300 MG TABLET PO SCH (20:44)
[2018-07-07] MEDS: MetFORMIN HCL 500 MG TABLET PO SCH (06:49)
[2018-07-07] MEDS: DIVALPROEX SODIUM 500 MG ER TABLET PO SCH (09:06)
[2018-07-07] MEDS: QUEtiapine FUMARATE 100 MG TABLET PO SCH ×2 (09:06→17:12)
[2018-07-07] MEDS: HALOPERIDOL 5 MG TABLET PO PRN (15:19)
[2018-07-07] MEDS: LORazepam 2 MG TABLET PO PRN (15:19)
[2018-07-07 16:52] VITALS: BP 116/84
[2018-07-07] MEDS: QUEtiapine FUMARATE 300 MG TABLET PO SCH (21:38)
[2018-07-08] MEDS: MetFORMIN HCL 500 MG TABLET PO SCH (07:09)
[2018-07-08 07:25] LABS: ANION GAP 6 mmol/L (8-16); CALCIUM, TOTAL 9.1 mg/dL (8.8-10.5); CARBON DIOXIDE 31 mmol/L (22-29); CHLORIDE 99 mmol/L (98-107); CREATININE 0.83 mg/dL (0.60-1.30); GLOMERULAR FILTR. RATE CALC > 60 mL/min (>60); GLUCOSE,RANDOM 140 mg/dL (70-110); POTASSIUM 4.1 mmol/L (3.5-5.1); SODIUM SERUM 136 mmol/L (136-145); UREA NITROGEN, BLOOD 13 mg/dL (7-18)
[2018-07-08 08:00] VITALS: BP 117/73
[2018-07-08] MEDS: QUEtiapine FUMARATE 100 MG TABLET PO SCH ×2 (09:29→17:18)
[2018-07-08] MEDS: DIVALPROEX SODIUM 500 MG ER TABLET PO SCH (09:29)
[2018-07-08] MEDS: HALOPERIDOL 5 MG TABLET PO PRN (09:29)
[2018-07-08] MEDS: LORazepam 2 MG TABLET PO PRN (09:29)
[2018-07-08 16:00] VITALS: BP 114/70
[2018-07-08] MEDS: QUEtiapine FUMARATE 300 MG TABLET PO SCH (20:15)
[2018-07-09] MEDS: MetFORMIN HCL 500 MG TABLET PO SCH (06:45)
[2018-07-09 08:00] VITALS: BP 104/85
[2018-07-09] MEDS: QUEtiapine FUMARATE 100 MG TABLET PO SCH ×2 (09:58→16:22)
[2018-07-09] MEDS: DIVALPROEX SODIUM 500 MG ER TABLET PO SCH (09:58)
[2018-07-09 17:14] VITALS: BP 117/68
[2018-07-09] MEDS: QUEtiapine FUMARATE 300 MG TABLET PO SCH (20:33)
[2018-07-10] MEDS: MetFORMIN HCL 500 MG TABLET PO SCH (06:43)
[2018-07-10 08:20] VITALS: BP 117/86
[2018-07-10] MEDS: QUEtiapine FUMARATE 100 MG TABLET PO SCH ×2 (08:36→17:24)
[2018-07-10] MEDS: LORazepam 2 MG TABLET PO PRN (08:36)
[2018-07-10] MEDS: DIVALPROEX SODIUM 500 MG ER TABLET PO SCH (08:36)
[2018-07-10] MEDS: HALOPERIDOL 5 MG TABLET PO PRN (08:36)
[2018-07-10 19:47] VITALS: BP 115/72
[2018-07-10] MEDS: QUEtiapine FUMARATE 300 MG TABLET PO SCH (20:19)
[2018-07-11] MEDS: MetFORMIN HCL 500 MG TABLET PO SCH (06:48)
[2018-07-11 08:36] VITALS: BP 120/84
[2018-07-11] MEDS: QUEtiapine FUMARATE 100 MG TABLET PO SCH ×2 (10:15→16:09)
[2018-07-11] MEDS: DIVALPROEX SODIUM 500 MG ER TABLET PO SCH (10:15)
[2018-07-11 16:00] VITALS: BP 114/70
[2018-07-11] MEDS: LORazepam 2 MG TABLET PO PRN (16:50)
[2018-07-11] MEDS: HALOPERIDOL 5 MG TABLET PO PRN (16:51)
[2018-07-11] MEDS: QUEtiapine FUMARATE 300 MG TABLET PO SCH (20:58)
[2018-07-12] MEDS: MetFORMIN HCL 500 MG TABLET PO SCH (06:36)
[2018-07-12] MEDS: DIVALPROEX SODIUM 500 MG ER TABLET PO SCH (09:16)
[2018-07-12] MEDS: QUEtiapine FUMARATE 100 MG TABLET PO SCH ×2 (09:16→16:02)
[2018-07-12 16:00] VITALS: BP 121/81
[2018-07-12] MEDS: LORazepam 2 MG TABLET PO PRN (16:02)
[2018-07-12] MEDS: QUEtiapine FUMARATE 300 MG TABLET PO SCH (20:21)
[2018-07-13 06:39] LABS: CHOL/HDL RATIO 4.8 (4.2-7.3)
[2018-07-13] MEDS: MetFORMIN HCL 500 MG TABLET PO SCH (06:44)
[2018-07-13] MEDS: QUEtiapine FUMARATE 100 MG TABLET PO SCH ×2 (08:48→16:24)
[2018-07-13] MEDS: LORazepam 2 MG TABLET PO PRN (08:48)
[2018-07-13] MEDS: DIVALPROEX SODIUM 500 MG ER TABLET PO SCH (08:48)
[2018-07-13 11:00] VITALS: BP 120/80
[2018-07-13 16:52] VITALS: BP 138/83
[2018-07-13] MEDS: QUEtiapine FUMARATE 300 MG TABLET PO SCH (20:23)
[2018-07-13] MEDS: SIMVASTATIN 10 MG TABLET PO SCH (20:24)
[2018-07-14] MEDS: MetFORMIN HCL 500 MG TABLET PO SCH (07:06)
[2018-07-14] MEDS: DIVALPROEX SODIUM 500 MG ER TABLET PO SCH (08:07)
[2018-07-14] MEDS: QUEtiapine FUMARATE 100 MG TABLET PO SCH ×2 (08:07→16:05)
[2018-07-14 08:42] VITALS: BP 107/63
[2018-07-14] MEDS: LORazepam 2 MG TABLET PO PRN (16:05)
[2018-07-14 16:43] VITALS: BP 110/69
[2018-07-14] MEDS: QUEtiapine FUMARATE 300 MG TABLET PO SCH (20:11)
[2018-07-14] MEDS: SIMVASTATIN 10 MG TABLET PO SCH (21:31)
[2018-07-15] MEDS: MetFORMIN HCL 500 MG TABLET PO SCH (06:30)
[2018-07-15] MEDS: QUEtiapine FUMARATE 100 MG TABLET PO SCH ×2 (08:10→17:45)
[2018-07-15] MEDS: DIVALPROEX SODIUM 500 MG ER TABLET PO SCH (08:10)
[2018-07-15 08:12] VITALS: BP 130/84
[2018-07-15 16:00] VITALS: BP 113/76
[2018-07-15] MEDS: LORazepam 2 MG TABLET PO PRN (17:45)
[2018-07-15] MEDS: SIMVASTATIN 10 MG TABLET PO SCH (20:10)
[2018-07-15] MEDS: QUEtiapine FUMARATE 300 MG TABLET PO SCH (20:10)
[2018-07-16] MEDS: MetFORMIN HCL 500 MG TABLET PO SCH (06:48)
[2018-07-16] MEDS: QUEtiapine FUMARATE 100 MG TABLET PO SCH ×2 (08:13→16:50)
[2018-07-16] MEDS: DIVALPROEX SODIUM 500 MG ER TABLET PO SCH (08:13)
[2018-07-16 08:28] VITALS: BP 105/67
[2018-07-16 16:12] VITALS: BP 148/87
[2018-07-16] MEDS: SIMVASTATIN 10 MG TABLET PO SCH (20:35)
[2018-07-16] MEDS: QUEtiapine FUMARATE 300 MG TABLET PO SCH (20:35)
[2018-07-17] MEDS: MetFORMIN HCL 500 MG TABLET PO SCH (06:40)
[2018-07-17] MEDS: QUEtiapine FUMARATE 100 MG TABLET PO SCH ×2 (08:09→16:08)
[2018-07-17] MEDS: DIVALPROEX SODIUM 500 MG ER TABLET PO SCH (08:10)
[2018-07-17 09:38] VITALS: BP 120/81
[2018-07-17 16:55] VITALS: BP 122/85
[2018-07-17] MEDS: SIMVASTATIN 10 MG TABLET PO SCH (20:46)
[2018-07-17] MEDS: QUEtiapine FUMARATE 300 MG TABLET PO SCH (20:46)
[2018-07-18] MEDS: MetFORMIN HCL 500 MG TABLET PO SCH (06:40)
[2018-07-18] MEDS: DIVALPROEX SODIUM 500 MG ER TABLET PO SCH (09:07)
[2018-07-18] MEDS: QUEtiapine FUMARATE 100 MG TABLET PO SCH ×2 (09:07→17:03)
[2018-07-18 09:27] VITALS: BP 140/79
[2018-07-18] MEDS: LORazepam 2 MG TABLET PO PRN (10:45)
[2018-07-18] MEDS: HALOPERIDOL 5 MG TABLET PO PRN (10:45)
[2018-07-18 16:00] VITALS: BP 132/78
[2018-07-18] MEDS: QUEtiapine FUMARATE 300 MG TABLET PO SCH (20:25)
[2018-07-18] MEDS: SIMVASTATIN 10 MG TABLET PO SCH (20:25)
[2018-07-19] MEDS: MetFORMIN HCL 500 MG TABLET PO SCH (06:39)
[2018-07-19] MEDS: QUEtiapine FUMARATE 100 MG TABLET PO SCH ×2 (08:00→16:25)
[2018-07-19] MEDS: DIVALPROEX SODIUM 500 MG ER TABLET PO SCH (08:00)
[2018-07-19 16:47] VITALS: BP 123/75
[2018-07-19] MEDS: QUEtiapine FUMARATE 300 MG TABLET PO SCH (20:10)
[2018-07-19] MEDS: SIMVASTATIN 10 MG TABLET PO SCH (20:10)
[2018-07-20] MEDS: MetFORMIN HCL 500 MG TABLET PO SCH (07:00)
[2018-07-20 08:36] VITALS: BP 103/71
[2018-07-20] MEDS: QUEtiapine FUMARATE 100 MG TABLET PO SCH ×2 (09:22→16:06)
[2018-07-20] MEDS: DIVALPROEX SODIUM 500 MG ER TABLET PO SCH (09:22)
[2018-07-20 16:53] VITALS: BP 128/89
[2018-07-20] MEDS: SIMVASTATIN 10 MG TABLET PO SCH (20:20)
[2018-07-20] MEDS: QUEtiapine FUMARATE 300 MG TABLET PO SCH (20:20)
[2018-07-21] MEDS: ZOLPIDEM TARTRATE 10 MG TABLET PO PRN (00:21)
[2018-07-21] MEDS: MetFORMIN HCL 500 MG TABLET PO SCH (07:12)
[2018-07-21 08:27] VITALS: BP 124/81
[2018-07-21] MEDS: DIVALPROEX SODIUM 500 MG ER TABLET PO SCH (09:47)
[2018-07-21] MEDS: QUEtiapine FUMARATE 100 MG TABLET PO SCH ×2 (09:48→17:46)
[2018-07-21] MEDS: HALOPERIDOL 5 MG TABLET PO PRN (11:11)
[2018-07-21] MEDS: LORazepam 2 MG TABLET PO PRN (11:11)
[2018-07-21 19:18] VITALS: BP 122/87
[2018-07-21] MEDS: QUEtiapine FUMARATE 300 MG TABLET PO SCH (21:06)
[2018-07-21] MEDS: SIMVASTATIN 10 MG TABLET PO SCH (21:06)
[2018-07-22] MEDS: MetFORMIN HCL 500 MG TABLET PO SCH (07:06)
[2018-07-22] MEDS: QUEtiapine FUMARATE 100 MG TABLET PO SCH ×2 (08:44→17:07)
[2018-07-22] MEDS: DIVALPROEX SODIUM 500 MG ER TABLET PO SCH (08:44)
[2018-07-22 08:50] VITALS: BP 126/92
[2018-07-22 16:00] VITALS: BP 124/83
[2018-07-22] MEDS: QUEtiapine FUMARATE 300 MG TABLET PO SCH (20:23)
[2018-07-22] MEDS: SIMVASTATIN 10 MG TABLET PO SCH (20:24)
[2018-07-23] MEDS: MetFORMIN HCL 500 MG TABLET PO SCH (06:51)
[2018-07-23 08:49] VITALS: BP 112/74
[2018-07-23] MEDS: DIVALPROEX SODIUM 500 MG ER TABLET PO SCH (09:57)
[2018-07-23] MEDS: QUEtiapine FUMARATE 100 MG TABLET PO SCH ×2 (09:57→16:29)
[2018-07-23 17:54] VITALS: BP 128/79
[2018-07-23] MEDS: SIMVASTATIN 10 MG TABLET PO SCH (20:40)
[2018-07-23] MEDS: QUEtiapine FUMARATE 300 MG TABLET PO SCH (20:40)
[2018-07-24] MEDS: MetFORMIN HCL 500 MG TABLET PO SCH (07:05)
[2018-07-24] MEDS: QUEtiapine FUMARATE 100 MG TABLET PO SCH ×2 (07:49→16:14)
[2018-07-24] MEDS: DIVALPROEX SODIUM 500 MG ER TABLET PO SCH (07:49)
[2018-07-24 08:47] VITALS: BP 131/91
[2018-07-24 16:00] VITALS: BP 125/64
[2018-07-24] MEDS: QUEtiapine FUMARATE 300 MG TABLET PO SCH (20:30)
[2018-07-24] MEDS: SIMVASTATIN 10 MG TABLET PO SCH (20:30)
[2018-07-25] MEDS: MetFORMIN HCL 500 MG TABLET PO SCH (06:41)
[2018-07-25 08:00] VITALS: BP 123/78
[2018-07-25] MEDS: DIVALPROEX SODIUM 500 MG ER TABLET PO SCH (08:09)
[2018-07-25] MEDS: QUEtiapine FUMARATE 100 MG TABLET PO SCH ×2 (08:09→16:33)
[2018-07-25 16:00] VITALS: BP 115/65
[2018-07-25] MEDS: SIMVASTATIN 10 MG TABLET PO SCH (20:16)
[2018-07-25] MEDS: QUEtiapine FUMARATE 300 MG TABLET PO SCH (20:16)
[2018-07-26] MEDS: MetFORMIN HCL 500 MG TABLET PO SCH (06:54)
[2018-07-26] MEDS: QUEtiapine FUMARATE 100 MG TABLET PO SCH ×2 (08:28→17:14)
[2018-07-26] MEDS: DIVALPROEX SODIUM 500 MG ER TABLET PO SCH (08:28)
[2018-07-26 08:50] VITALS: BP 110/78
[2018-07-26 16:20] VITALS: BP 108/64
[2018-07-26] MEDS: QUEtiapine FUMARATE 300 MG TABLET PO SCH (20:55)
[2018-07-26] MEDS: SIMVASTATIN 10 MG TABLET PO SCH (20:55)
[2018-07-27] MEDS: MetFORMIN HCL 500 MG TABLET PO SCH (06:39)
[2018-07-27] MEDS: QUEtiapine FUMARATE 100 MG TABLET PO SCH ×2 (07:51→17:05)
[2018-07-27] MEDS: DIVALPROEX SODIUM 500 MG ER TABLET PO SCH (07:51)
[2018-07-27 08:14] VITALS: BP 128/62
[2018-07-27 16:53] VITALS: BP 125/73
[2018-07-27] MEDS: SIMVASTATIN 10 MG TABLET PO SCH (20:20)
[2018-07-27] MEDS: QUEtiapine FUMARATE 300 MG TABLET PO SCH (20:20)
[2018-07-28] MEDS: MetFORMIN HCL 500 MG TABLET PO SCH (07:03)
[2018-07-28 08:16] VITALS: BP 107/75
[2018-07-28] MEDS: QUEtiapine FUMARATE 100 MG TABLET PO SCH ×2 (08:53→15:59)
[2018-07-28] MEDS: DIVALPROEX SODIUM 500 MG ER TABLET PO SCH (08:53)
[2018-07-28 16:00] VITALS: BP 100/60
[2018-07-28] MEDS: SIMVASTATIN 10 MG TABLET PO SCH (20:14)
[2018-07-28] MEDS: QUEtiapine FUMARATE 300 MG TABLET PO SCH (20:14)
[2018-07-29] MEDS: MetFORMIN HCL 500 MG TABLET PO SCH (06:59)
[2018-07-29] MEDS: DIVALPROEX SODIUM 500 MG ER TABLET PO SCH (07:53)
[2018-07-29] MEDS: QUEtiapine FUMARATE 100 MG TABLET PO SCH ×2 (07:53→16:30)
[2018-07-29 08:54] VITALS: BP 126/77
[2018-07-29] MEDS: HALOPERIDOL 5 MG TABLET PO PRN (15:38)
[2018-07-29] MEDS: LORazepam 2 MG TABLET PO PRN (15:38)
[2018-07-29 16:55] VITALS: BP 123/72
[2018-07-29] MEDS: QUEtiapine FUMARATE 300 MG TABLET PO SCH (20:18)
[2018-07-29] MEDS: SIMVASTATIN 10 MG TABLET PO SCH (20:18)
[2018-07-30] MEDS: MetFORMIN HCL 500 MG TABLET PO SCH (06:40)
[2018-07-30 08:23] VITALS: BP 121/66
[2018-07-30] MEDS: DIVALPROEX SODIUM 500 MG ER TABLET PO SCH (09:23)
[2018-07-30] MEDS: QUEtiapine FUMARATE 100 MG TABLET PO SCH ×2 (09:23→16:09)
[2018-07-30] MEDS: HALOPERIDOL 5 MG TABLET PO PRN (15:43)
[2018-07-30 16:00] VITALS: BP 114/66
[2018-07-30] MEDS: QUEtiapine FUMARATE 300 MG TABLET PO SCH (20:11)
[2018-07-30] MEDS: SIMVASTATIN 10 MG TABLET PO SCH (20:11)
[2018-07-31] MEDS: MetFORMIN HCL 500 MG TABLET PO SCH (07:03)
[2018-07-31 08:00] VITALS: BP 149/73
[2018-07-31] MEDS: QUEtiapine FUMARATE 100 MG TABLET PO SCH ×2 (08:57→18:28)
[2018-07-31] MEDS: DIVALPROEX SODIUM 500 MG ER TABLET PO SCH (08:58)
[2018-07-31 16:40] VITALS: BP 124/67
[2018-07-31] MEDS: QUEtiapine FUMARATE 300 MG TABLET PO SCH (20:27)
[2018-07-31] MEDS: SIMVASTATIN 10 MG TABLET PO SCH (20:27)
[2018-08-01] MEDS: MetFORMIN HCL 500 MG TABLET PO SCH (07:05)
[2018-08-01] MEDS: DIVALPROEX SODIUM 500 MG ER TABLET PO SCH (09:15)
[2018-08-01] MEDS: QUEtiapine FUMARATE 100 MG TABLET PO SCH ×2 (09:15→16:26)
[2018-08-01 09:36] VITALS: BP 149/74
[2018-08-01 16:30] VITALS: BP 112/56
[2018-08-01] MEDS: QUEtiapine FUMARATE 300 MG TABLET PO SCH (20:47)
[2018-08-01] MEDS: SIMVASTATIN 10 MG TABLET PO SCH (20:47)
[2018-08-02] MEDS: MetFORMIN HCL 500 MG TABLET PO SCH (07:05)
[2018-08-02] MEDS: QUEtiapine FUMARATE 100 MG TABLET PO SCH ×2 (08:56→16:40)
[2018-08-02] MEDS: DIVALPROEX SODIUM 500 MG ER TABLET PO SCH (08:56)
[2018-08-02 09:26] VITALS: BP 116/56
[2018-08-02 16:30] VITALS: BP 116/56
[2018-08-02] MEDS: QUEtiapine FUMARATE 300 MG TABLET PO SCH (20:22)
[2018-08-02] MEDS: SIMVASTATIN 10 MG TABLET PO SCH (20:22)
[2018-08-03] MEDS: MetFORMIN HCL 500 MG TABLET PO SCH (06:40)
[2018-08-03] MEDS: QUEtiapine FUMARATE 100 MG TABLET PO SCH ×2 (08:15→16:12)
[2018-08-03] MEDS: DIVALPROEX SODIUM 500 MG ER TABLET PO SCH (08:15)
[2018-08-03 09:30] VITALS: BP 117/85
[2018-08-03] MEDS: PALIPERIDONE PALMITATE 234 MG/1.5 ML SYRINGE IM SCH (09:36)
[2018-08-03 16:44] VITALS: BP 120/60
[2018-08-03] MEDS: SIMVASTATIN 10 MG TABLET PO SCH (20:29)
[2018-08-03] MEDS: QUEtiapine FUMARATE 300 MG TABLET PO SCH (20:29)
[2018-08-04] MEDS: MetFORMIN HCL 500 MG TABLET PO SCH (07:20)
[2018-08-04 08:00] VITALS: BP 96/65
[2018-08-04] MEDS: QUEtiapine FUMARATE 100 MG TABLET PO SCH ×2 (09:05→17:05)
[2018-08-04] MEDS: DIVALPROEX SODIUM 500 MG ER TABLET PO SCH (09:05)
[2018-08-04] MEDS: LORazepam 2 MG TABLET PO PRN (10:34)
[2018-08-04 16:35] VITALS: BP 113/74
[2018-08-04] MEDS: SIMVASTATIN 10 MG TABLET PO SCH (20:52)
[2018-08-04] MEDS: QUEtiapine FUMARATE 300 MG TABLET PO SCH (20:52)
[2018-08-05] MEDS: MetFORMIN HCL 500 MG TABLET PO SCH (07:02)
[2018-08-05 08:00] VITALS: BP 97/60
[2018-08-05] MEDS: DIVALPROEX SODIUM 500 MG ER TABLET PO SCH (09:20)
[2018-08-05] MEDS: QUEtiapine FUMARATE 100 MG TABLET PO SCH ×2 (09:20→16:28)
[2018-08-05 16:00] VITALS: BP 112/70
[2018-08-05] MEDS: SIMVASTATIN 10 MG TABLET PO SCH (20:17)
[2018-08-05] MEDS: QUEtiapine FUMARATE 300 MG TABLET PO SCH (20:17)
[2018-08-06] MEDS: MetFORMIN HCL 500 MG TABLET PO SCH (07:10)
[2018-08-06 08:45] VITALS: BP 131/93
[2018-08-06] MEDS: QUEtiapine FUMARATE 100 MG TABLET PO SCH ×2 (09:07→16:57)
[2018-08-06] MEDS: DIVALPROEX SODIUM 500 MG ER TABLET PO SCH (09:07)
[2018-08-06 19:33] VITALS: BP 111/77
[2018-08-06] MEDS: SIMVASTATIN 10 MG TABLET PO SCH (20:50)
[2018-08-06] MEDS: QUEtiapine FUMARATE 300 MG TABLET PO SCH (20:50)
[2018-08-07] MEDS: MetFORMIN HCL 500 MG TABLET PO SCH (06:48)
[2018-08-07 07:08] LABS: BASOPHILS % (AUTO) 0.6 % (0.0-2.0); EOSINOPHILS % (AUTO) 2.5 % (1.0-6.0); HEMATOCRIT 41.5 % (41-53); HEMOGLOBIN 14.4 g/dL (13.5-17.5); LYMPHOCYTES # (AUTO) 2.8 K/uL (1.0-4.8); LYMPHOCYTES % (AUTO) 43.8 % (22.0-44.0); MEAN CORPUSCULAR HEMOGLOBIN 29.8 pg (26.0-34.0); MEAN CORPUSCULAR HGB CONC 34.6 G/dL (31.0-37.0); MEAN CORPUSCULAR VOLUME 86 fL (80-100); MONOCYTES # (AUTO) 0.5 K/uL (0.1-1.0); MONOCYTES % (AUTO) 7.9 % (2.0-9.0); NEUTROPHILS # (AUTO) 2.9 K/uL (1.8-7.7); NEUTROPHILS % (AUTO) 45.2 % (40.0-70.0); PLATELET COUNT (AUTO) 248 K/uL (150-450); RED BLOOD CELL COUNT(AUTO) 4.83 MIL/uL (4.50-5.90); RED CELL DISTRIBUTION WIDTH 13.2 % (11.5-14.5)
[2018-08-07 07:36] LABS: ALANINE AMINOTRANSFERASE 45 U/L (12-78); ALBUMIN 3.6 g/dL (3.4-5.0); ALKALINE PHOSPHATASE 68 U/L (46-116); ANION GAP 7 mmol/L (8-16); ASPARTATE AMINOTRANSFERASE 17 U/L (15-37); BILIRUBIN,TOTAL 0.3 mg/dL (0.1-1.0); CALCIUM, TOTAL 9.3 mg/dL (8.8-10.5); CARBON DIOXIDE 32 mmol/L (22-29); CHLORIDE 101 mmol/L (98-107); CREATININE 0.82 mg/dL (0.60-1.30); GLOMERULAR FILTR. RATE CALC > 60 mL/min (>60); GLUCOSE,RANDOM 211 mg/dL (70-110); POTASSIUM 4.3 mmol/L (3.5-5.1); SODIUM SERUM 140 mmol/L (136-145); TOTAL PROTEIN, SERUM 6.8 g/dL (6.4-8.2); UREA NITROGEN, BLOOD 10 mg/dL (7-18)
[2018-08-07 08:00] VITALS: BP 133/87
[2018-08-07] MEDS: QUEtiapine FUMARATE 100 MG TABLET PO SCH ×2 (08:38→16:02)
[2018-08-07] MEDS: DIVALPROEX SODIUM 500 MG ER TABLET PO SCH (08:38)
[2018-08-07 18:22] VITALS: BP 121/81
[2018-08-07] MEDS: SIMVASTATIN 10 MG TABLET PO SCH (20:32)
[2018-08-07] MEDS: QUEtiapine FUMARATE 300 MG TABLET PO SCH (20:32)
[2018-08-08] MEDS: MetFORMIN HCL 500 MG TABLET PO SCH (06:44)
[2018-08-08] MEDS: DIVALPROEX SODIUM 500 MG ER TABLET PO SCH (08:46)
[2018-08-08] MEDS: QUEtiapine FUMARATE 100 MG TABLET PO SCH ×2 (08:46→16:06)
[2018-08-08 09:42] VITALS: BP 113/86
[2018-08-08 17:10] VITALS: BP 125/73
[2018-08-08] MEDS: SIMVASTATIN 10 MG TABLET PO SCH (20:10)
[2018-08-08] MEDS: QUEtiapine FUMARATE 300 MG TABLET PO SCH (20:10)
[2018-08-09] MEDS: MetFORMIN HCL 500 MG TABLET PO SCH (06:51)
[2018-08-09 08:00] VITALS: BP 110/70
[2018-08-09] MEDS: DIVALPROEX SODIUM 500 MG ER TABLET PO SCH (09:50)
[2018-08-09] MEDS: QUEtiapine FUMARATE 100 MG TABLET PO SCH ×2 (09:50→16:34)
[2018-08-09 19:43] VITALS: BP 120/76
[2018-08-09] MEDS: SIMVASTATIN 10 MG TABLET PO SCH (20:10)
[2018-08-09] MEDS: QUEtiapine FUMARATE 300 MG TABLET PO SCH (20:10)
[2018-08-10] MEDS: MetFORMIN HCL 500 MG TABLET PO SCH (06:46)
[2018-08-10 08:00] VITALS: BP 111/70
[2018-08-10] MEDS: QUEtiapine FUMARATE 100 MG TABLET PO SCH ×2 (08:34→17:50)
[2018-08-10] MEDS: DIVALPROEX SODIUM 500 MG ER TABLET PO SCH (08:34)
[2018-08-10 16:42] VITALS: BP 127/81
[2018-08-10] MEDS: QUEtiapine FUMARATE 300 MG TABLET PO SCH (20:54)
[2018-08-10] MEDS: SIMVASTATIN 10 MG TABLET PO SCH (20:54)
[2018-08-11] MEDS: MetFORMIN HCL 500 MG TABLET PO SCH (07:06)
[2018-08-11 08:00] VITALS: BP 114/75
[2018-08-11] MEDS: DIVALPROEX SODIUM 500 MG ER TABLET PO SCH (08:15)
[2018-08-11] MEDS: QUEtiapine FUMARATE 100 MG TABLET PO SCH ×2 (08:15→16:24)
[2018-08-11 16:19] VITALS: BP 105/76
[2018-08-11] MEDS: QUEtiapine FUMARATE 300 MG TABLET PO SCH (21:13)
[2018-08-11] MEDS: SIMVASTATIN 10 MG TABLET PO SCH (21:14)
[2018-08-12] MEDS: MetFORMIN HCL 500 MG TABLET PO SCH (07:02)
[2018-08-12] MEDS: QUEtiapine FUMARATE 100 MG TABLET PO SCH ×2 (07:51→16:23)
[2018-08-12] MEDS: DIVALPROEX SODIUM 500 MG ER TABLET PO SCH (07:51)
[2018-08-12 16:35] VITALS: BP 118/67
[2018-08-12 16:50] VITALS: BP 118/67
[2018-08-12] MEDS: SIMVASTATIN 10 MG TABLET PO SCH (20:11)
[2018-08-12] MEDS: QUEtiapine FUMARATE 300 MG TABLET PO SCH (20:11)
[2018-08-13] MEDS: MetFORMIN HCL 500 MG TABLET PO SCH (06:55)
[2018-08-13 08:00] VITALS: BP 108/60
[2018-08-13] MEDS: OMEGA-3/DHA/EPA/FISH OIL 1,000 MG CAPSULE PO SCH (09:24)
[2018-08-13] MEDS: QUEtiapine FUMARATE 100 MG TABLET PO SCH ×2 (09:25→16:16)
[2018-08-13] MEDS: DIVALPROEX SODIUM 500 MG ER TABLET PO SCH (09:25)
[2018-08-13 16:17] VITALS: BP 119/70
[2018-08-13] MEDS: SIMVASTATIN 10 MG TABLET PO SCH (20:01)
[2018-08-13] MEDS: QUEtiapine FUMARATE 300 MG TABLET PO SCH (20:01)
[2018-08-14] MEDS: MetFORMIN HCL 500 MG TABLET PO SCH (06:44)
[2018-08-14 08:00] VITALS: BP 96/60
[2018-08-14] MEDS: DIVALPROEX SODIUM 500 MG ER TABLET PO SCH (08:09)
[2018-08-14] MEDS: OMEGA-3/DHA/EPA/FISH OIL 1,000 MG CAPSULE PO SCH (08:09)
[2018-08-14] MEDS: QUEtiapine FUMARATE 100 MG TABLET PO SCH ×2 (08:09→16:21)
[2018-08-14 09:22] VITALS: BP 96/60
[2018-08-14 16:00] VITALS: BP 105/65
[2018-08-14] MEDS: SIMVASTATIN 10 MG TABLET PO SCH (20:16)
[2018-08-14] MEDS: QUEtiapine FUMARATE 300 MG TABLET PO SCH (20:32)
[2018-08-15] MEDS: MetFORMIN HCL 500 MG TABLET PO SCH (06:43)
[2018-08-15] MEDS: QUEtiapine FUMARATE 100 MG TABLET PO SCH ×2 (08:20→16:21)
[2018-08-15] MEDS: OMEGA-3/DHA/EPA/FISH OIL 1,000 MG CAPSULE PO SCH (08:20)
[2018-08-15] MEDS: DIVALPROEX SODIUM 500 MG ER TABLET PO SCH (08:20)
[2018-08-15 08:59] VITALS: BP 145/62
[2018-08-15 16:11] VITALS: BP 113/75
[2018-08-15] MEDS: QUEtiapine FUMARATE 300 MG TABLET PO SCH (20:23)
[2018-08-15] MEDS: SIMVASTATIN 10 MG TABLET PO SCH (20:23)
[2018-08-16] MEDS: MetFORMIN HCL 500 MG TABLET PO SCH (06:41)
[2018-08-16 08:00] VITALS: BP 118/56
[2018-08-16] MEDS: DIVALPROEX SODIUM 500 MG ER TABLET PO SCH (08:07)
[2018-08-16] MEDS: QUEtiapine FUMARATE 100 MG TABLET PO SCH ×2 (08:07→16:15)
[2018-08-16] MEDS: OMEGA-3/DHA/EPA/FISH OIL 1,000 MG CAPSULE PO SCH (08:07)
[2018-08-16 16:12] VITALS: BP 111/73
[2018-08-16] MEDS: QUEtiapine FUMARATE 300 MG TABLET PO SCH (20:14)
[2018-08-16] MEDS: SIMVASTATIN 10 MG TABLET PO SCH (20:15)
[2018-08-17] MEDS: MetFORMIN HCL 500 MG TABLET PO SCH (07:02)
[2018-08-17 08:00] VITALS: BP 128/77
[2018-08-17] MEDS: DIVALPROEX SODIUM 500 MG ER TABLET PO SCH (08:51)
[2018-08-17] MEDS: QUEtiapine FUMARATE 100 MG TABLET PO SCH ×2 (08:52→17:02)
[2018-08-17] MEDS: OMEGA-3/DHA/EPA/FISH OIL 1,000 MG CAPSULE PO SCH (08:52)
[2018-08-17] MEDS ORDERED: METF-960 PO (13:32)
[2018-08-17] MEDS ORDERED: SIMV-259 PO (13:32)
[2018-08-17] MEDS ORDERED: OMEG-135 PO (13:32)
[2018-08-17] MEDS ORDERED: QUET100T PO (13:44)
[2018-08-17] MEDS ORDERED: QUET300T2 PO (13:44)
[2018-08-17] MEDS ORDERED: PALI234D IM (13:44)
[2018-08-17] MEDS ORDERED: DIVA500T52 PO (13:44)
[2018-08-17 16:12] VITALS: BP 134/84
[2018-08-17] MEDS: SIMVASTATIN 10 MG TABLET PO SCH (21:30)
[2018-08-17] MEDS: QUEtiapine FUMARATE 300 MG TABLET PO SCH (21:30)
[2018-08-18] MEDS: MetFORMIN HCL 500 MG TABLET PO SCH (07:11)
[2018-08-18] MEDS: OMEGA-3/DHA/EPA/FISH OIL 1,000 MG CAPSULE PO SCH (08:41)
[2018-08-18] MEDS: DIVALPROEX SODIUM 500 MG ER TABLET PO SCH (08:41)
[2018-08-18] MEDS: QUEtiapine FUMARATE 100 MG TABLET PO SCH (08:41)
[2018-08-18 10:39] VITALS: BP 99/68
== END 2018-08-18 10:50 | disposition home or self-care (01) | DRG 885 ==
LOC: EMS 22:01 → B3A 05-30 04:30 → 3EC 07-01 10:31
PROVIDERS: ATTEND Psychiatry & Neurology Child & Adolescent Psychiatry
DX: F20.0 Paranoid schizophrenia (principal); E87.1 Hypo-osmolality and hyponatremia; D72.829 Elevated white blood cell count, unspecified; E11.65 Type 2 diabetes mellitus with hyperglycemia; E78.5 Hyperlipidemia, unspecified; F10.10 Alcohol abuse, uncomplicated; F31.9 Bipolar disorder, unspecified; R10.13 Epigastric pain; F19.10 Other psychoactive substance abuse, uncomplicated; G47.33 Obstructive sleep apnea (adult) (pediatric); I10 Essential (primary) hypertension; R45.850 Homicidal ideations; F17.210 Nicotine dependence, cigarettes, uncomplicated; Z59.0 Homelessness; Z28.21 Immunization not carried out because of patient refusal; Z79.899 Other long term (current) drug therapy; Z71.51 Drug abuse counseling and surveillance of drug abuser; Z71.41 Alcohol abuse counseling and surveillance of alcoholic
CPT/HCPCS: 83036; 87081; 94660; G0480